=== PATIENT | female | born 1975 | race Hispanic/Latino ===

== ENCOUNTER → 2018-08-05 | Day surgery (SDC) | payer MEDICARE, OTHER ==
[~2018-08-05] MED LIST: ACETAMINOPHEN 1000 MG/100 ML IV ONE; ADVIL PO; ALLEGRA ALLERG180 MG PO; ATENOLOL50 MG PO; BACTRIM DS TAB1 EACH PO; BLISOVI PO; BUPIVACAINE HCL 0.5% INJ 30 ML VIAL INJ ONE; CEFAZOLIN SOD 1 GM/D5W 50ML 50 ML IV ONE; CYMBALTA20 MG PO; DEXAMETHASONE SOD PHOS INJ 4 MG/ML VIAL ONE; EPHEDRINE SULFATE INJ 50 MG/10 ML SYR ONE; FENTANYL CITRATE/PF 100MCG/2 ML INJ ONE; FOCALIN XR20 MG PO; GAS RELIEF125 M1 PO; JET ALERT PO; LIDOCAINE HCL 2% LOCAL INJ 5 ML SDV VIAL INJ ONE; LORAZEPAM0.5 MG PO; MIDAZOLAM HCL 2 MG/2 ML VIAL ONE; MUPIROCIN 2% OINT 22 GM TUBE ONE; NAPROXEN PO; NECON1 EAC1 PO; NEXIUM40 MG PO; OMEPRAZOLE40 MG PO; ONDANSETRON HCL INJ 2 MG/ML VIAL ONE; PAXIL20 MG PO; PROPOFOL IV EMULSION 10 MG/ML 20 ML VIAL ONE; RANITIDINE HCL300 MG PO; SEVOFLURANE INHAL SOLN 250 ML PEN BTL ONE; TIGAN300 MG PO; TUMS PO; TYLENOL PO; WELLBUTRIN XL300 MG PO; XENAZINE25 MG PO; ZOFRAN ODT4 MG PO
--- OUTSIDE RECORDS SUMMARY | 2018-08-05 05:26 | XMS REPORT | Summary of Care ---
Author Author [facility] Organization [facility] Address Unknown Phone Unavailable Encounter HQ Valentinontr_keshawn(FIN) [id number] Date(s): 12/28/17 - 12/29/17 [facility] [address] Vital Signs No data available for this section Problem List No data available for this section Allergies, Adverse Reactions, Alerts No Known Medication Allergies Medications losartan 25 mg oral tablet 25 mg=1 tab, PO, Daily, # 30 tab, 1 Refill(s), Pharmacy: [facility]/pharmacy # [id number] Start Date: 12/28/17 Status: Ordered Results No data available for this section Immunizations No data available for this section Procedures Procedure Date Related Diagnosis Body Site Status Neck procedure 02/23/14 Completed Neck procedure 11/22/07 Completed Balloon tuboplasty Completed Social History Social History Type Response Substance Abuse Use: None. Sexual Sexually active: Yes. Partner with STD? No. Sex Mutually Satisfying: No. Self Breast Exam No. Last Pap Smear 10/2016. Menstrual Period Started: Yes. Employment/School Status: Employed. Operates hazardous equipment: No. Alcohol Current, Type Wine. Smoking Status Never smoker; Exposure to Tobacco Smoke None; Cigarette Smoking Last 365 Days No; Reg Smoking Cessation Counseling No entered on: 12/15/17 Assessment and Plan No data available for this section
--- OUTSIDE RECORDS SUMMARY | 2018-08-05 05:26 | XMS REPORT | Summary of Care ---
Author Author [facility] Organization [facility] Address Unknown Phone Unavailable Encounter HQ Encntr_alias(FIN) [id number] Date(s): 12/22/17 - 12/23/17 [facility] [address] [facility] [address] [place], [place] [id number] [place] [address] Vital Signs No data available for this section Problem List No data available for this section Allergies, Adverse Reactions, Alerts No Known Medication Allergies Medications No data available for this section Results No data available for this section [...]
--- OUTSIDE RECORDS SUMMARY | 2018-08-05 05:26 | XMS REPORT | Summary of Care ---
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 [place], [place] [address] [phone] Discharge Disposition: Home or Self Care Attending Physician: Pankaj Winston MD Vital Signs Most recent to 1 oldest [Reference Range]: Height 162.56 cm (11/10/17 3:12 PM) Temperature Oral 98.4 DegF [96.4-99.1 DegF] (11/10/17 3:12 PM) Blood Pressure 121/83 mmHg [90-140/60-90 mmHg] (11/10/17 3:12 PM) Peripheral Pulse 84 bpm Rate [60-100 bpm] (11/10/17 3:12 PM) Weight 79.091 kg (11/10/17 3:12 PM) Body Mass Index 29.93 m2 (11/10/17 3:12 PM) Problem List No data available for this section Allergies, Adverse Reactions, Alerts No Known Medication Allergies Medications Gildess 24 FE 20 mcg-1 mg oral tablet 1 tab, PO, Daily, # 84 tab, 3 Refill(s), Pharmacy: [facility]/pharmacy #[id number] Start Date: 11/10/17 Status: Ordered Results No data available for [...] Reg Smoking Cessation Counseling No entered on: 01/07/18 Assessment and Plan No data available for this section
--- OUTSIDE RECORDS SUMMARY | 2018-08-05 05:26 | XMS REPORT | Continuity of Care Document ---
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) Active 01/22/2018 [facility] 723.4 - BRACHIAL NEURIT Active 01/13/2014 [facility] Medications Medication Details Route Status Patient Instructions Ordering Provider Order Date Source Atenolol 50 MG Oral Tablet 50 mg=1 tab, PO, Daily, # 90 tab, 0 Refill(s), Pharmacy: [facility]/pharmacy # [id number] Active 01/07/2018 [facility] clonazePAM 0.5 mg oral tablet 0.5 mg=1 tab, PO, BID, PRN anxiety, # 60 tab, 0 Refill(s) Active 01/07/2018 [facility] losartan 25 mg oral tablet 25 mg=1 tab, PO, Daily, # 30 tab, 1 Refill(s), Pharmacy: [facility]/pharmacy # [id number] Active 12/28/2017 [facility] lisinopril 10 mg oral tablet 10 mg=1 tab, PO, Daily, # 90 tab, 1 Refill(s), Pharmacy: [facility]/pharmacy # [id number], Patient reports she received 30mg tablets. Active 12/15/2017 [facility] lisinopril 10 mg oral tablet 10 mg=1 tab, PO, Daily, # 90 tab, 1 Refill(s), Pharmacy: [facility]/pharmacy # [id number] Active 12/15/2017 [facility] Motrin 800 mg oral tablet 800 mg=1 tab, PO, Q8H, PRN Pain, Take with food, X 10 day, # 30 tab, 0 Refill(s), Pharmacy: [facility]/pharmacy # [id number] Active 12/03/2017 [facility] 24 HR dexmethylphenidate hydrochloride 20 MG Extended Release Capsule [Focalin] 20 mg=1 cap, PO, QAM, 0 Refill(s) Active 11/30/2017 [facility] {24 (Ethinyl Estradiol 0.02 MG / norethindrone acetate 1 MG Oral Tablet) / 4 (Ferrous fumarate 75 MG Oral Tablet) } Pack [Gildess 24 Fe 28 Day] 1 tab, PO, Daily, # 84 tab, 3 Refill(s), Pharmacy: [facility]/pharmacy #[id number] Active 11/10/2017 [facility] Lorazepam 1 MG Oral Tablet 1 mg=1 tab, PO, Daily, PRN Anxiety, # 60 tab, 0 Refill(s) Active 09/16/2017 [facility] {21 (Ethinyl Estradiol 0.035 MG / Norethindrone 0.5 MG Oral Tablet) / 7 (Inert Ingredients 1 MG Oral Tablet) } Pack [Necon 0.5/35 28 Day] 1 tab, PO, Daily, # 28 tab, 0 Refill(s) No Longer Active 09/16/2017 [facility] ranitidine 300 mg oral tablet 300 mg=1 tab, PO, BID, 0 Refill(s) Active 09/16/2017 [facility] Esomeprazole 40 MG Enteric Coated Capsule [Nexium] 40 mg=1 cap, PO, BID, 0 Refill(s) Active 09/16/2017 [facility] non-formulary spark 1 drink a day, Refill(s) 0 Active 09/16/2017 [facility] duloxetine 30 MG Enteric Coated Capsule [Cymbalta] 30 mg=1 cap, PO, Daily, # 30 cap, 0 Refill(s) Active 09/16/2017 [facility] Advil PO, Q6H, 0 Refill(s) Active 09/16/2017 [facility] Atenolol 50 MG Oral Tablet 50 mg=1 tab, PO, Daily, # 30 tab, 0 Refill(s) No Longer Active 09/16/2017 [facility] Tylenol PO, 0 Refill(s) Active 09/16/2017 [facility] naproxen 500 mg oral tablet 500 mg=1 tab, PO, BID, # 60 tab, 0 Refill(s) Active 09/16/2017 [facility] Trimethobenzamide hydrochloride 300 MG Oral Capsule [Tigan] 300 mg=1 cap, PO, TID, # 21 cap, 0 Refill(s) Active 09/16/2017 [facility] 24 HR Bupropion Hydrochloride 300 MG Extended Release Tablet [Wellbutrin] 300 mg=1 tab, PO, Daily, # 30 tab, 0 Refill(s) Active 09/16/2017 [facility] Lupis PO, 0 Refill(s) Active 09/16/2017 [facility] Mupirocin 0.02 MG/MG Topical Ointment [Bactroban] 1 appl, TOP, TID, X 5 day, # 15 gm, 0 Refill(s), Pharmacy: [facility]/pharmacy #[id number] No Longer Active 09/16/2017 [facility] Allergies, Adverse Reactions, Alerts Substance Category Reaction Severity Reaction type Status Date Reported Comments Source No Known Medication Allergies Assertion Drug allergy [facility] Immunizations Immunization Date Given Site Status Last Updated Comments Source Results Order Name Results Value Reference Range Date Interpretation Comments Source Breast Mammo Scrn CLAUDETTE incl CAD MA Breast Mammo Scrn CLAUDETTE incl CAD MA BILATERAL FIRST EVER DIGITAL SCREENING MAMMOGRAM WITH CAD: 02/05/2018 CLINICAL: Screening/Screening Junior Keelyjocelyne Pelayo 1975. Current study was evaluated with a Computer Aided Detection (CAD) system. COMPARISON:No prior exams were available for comparison. TECHNIQUE: Mammographic views were obtained using digital acquisition. Current study was also evaluated with a Computer Aided Detection (CAD) system. FINDINGS: The tissue of both breasts is almost entirely fat. No significant masses, calcifications, or other findings are seen in either breast. IMPRESSION: NEGATIVE RECOMMENDATION:There is no mammographic evidence of malignancy. A 1 year screening mammogram is recommended.(02/06/2019) This exam was interpreted at [id number] at [facility]. Professional services are provided by the [facility]. Michelle Sibley M.D. to/penrad:02/05/2018 12:45:48 Dialysis Equipment Technician(s): Yvette Olivares [facility] letter sent: BI-RADS 1/2 Mammogram BI-RADS: 1 Negative 02/05/2018 - - Read by: Michelle Sibley MD Dictated Date/time: 02/05/18 12:45 Electronically Signed by: Michelle Sibley MD 02/05/18 12:45 FINAL REPORT [facility] Vital Signs Vital Sign Value Date Comments Source Weight 79.091 01/07/2018 [facility] Heart Rate 132 01/07/2018 [facility] Respitory Rate 16 01/07/2018 [facility] Temperature Oral (F) 99.4 F 01/07/2018 [facility] Systolic (mm Hg) 136 01/07/2018 [facility] Diastolic (mm Hg) 92 01/07/2018 [facility] Weight 80 12/15/2017 [facility] Temperature Oral (F) 98.7 F 12/15/2017 [facility] Heart Rate 109 12/15/2017 [facility] Respitory Rate 16 12/15/2017 [facility] Systolic (mm Hg) 143 12/15/2017 [facility] Diastolic (mm Hg) 98 12/15/2017 [facility] Heart Rate 117 12/03/2017 [facility] Temperature Oral (F) 99.1 F 12/03/2017 [facility] Height 170.18 cm 12/03/2017 [facility] Weight 79.205 12/03/2017 [facility] BMI Calculated 27.35 12/03/2017 [facility] Systolic (mm Hg) 131 12/03/2017 [facility] Diastolic (mm Hg) 87 12/03/2017 [facility] Height 170.18 cm 11/30/2017 [facility] Weight 78.636 11/30/2017 [facility] BMI Calculated 27.15 11/30/2017 [facility] Systolic (mm Hg) 110 11/30/2017 [facility] Diastolic (mm Hg) 77 11/30/2017 [facility] Heart Rate 125 11/30/2017 [facility] Temperature Oral (F) 98.5 F 11/30/2017 [facility] Respitory Rate 16 11/30/2017 [facility] Height 162.56 cm 11/10/2017 [facility] BMI Calculated 29.93 11/10/2017 [facility] Weight 79.091 11/10/2017 [facility] Heart Rate 84 11/10/2017 [facility] Temperature Oral (F) 98.4 F 11/10/2017 [facility] Systolic (mm Hg) 121 11/10/2017 [facility] Diastolic (mm Hg) 83 11/10/2017 [facility] BMI Calculated 28.53 09/16/2017 [facility] Weight 80.17 09/16/2017 [facility] Height 167.64 cm 09/16/2017 [facility] Heart Rate 88 09/16/2017 [facility] Temperature Oral (F) 98.4 F 09/16/2017 [facility] Systolic (mm Hg) 126 09/16/2017 [facility] Diastolic (mm Hg) 88 09/16/2017 [facility] Encounters Location Location Details Encounter Type Encounter Number Reason For Visit Attending Provider ADM Date DC Date Status Source Outpatient [id number] [place] 09/16/2017 [facility] Primary Care [facility] Outpatient [id number] Roula Rodríguez 09/16/2017 09/17/2017 [facility] Primary Care [facility] Phone Message [id number] 09/18/2017 09/20/2017 [facility] Outpatient [id number] MARAH GARCIA 11/10/2017 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 [facility] Outpatient [id number] Marah Garcia 11/10/2017 11/11/2017 [facility] Outpatient [id number] ROULA RODRÍGUEZ 11/30/2017 Active [facility] Primary Care [facility] Outpatient [id number] Roula Rodríguez 11/30/2017 12/01/2017 [facility] Primary Care [facility] Phone Message [id number] 12/01/2017 12/03/2017 [facility] Outpatient [id number] ANDREE MCKINLEY 12/03/2017 Active [facility] Primary Care [facility] Outpatient [id number] Roula Rodríguez 12/03/2017 12/04/2017 [facility] Outpatient [id number] ROULA RODRÍGUEZ 12/15/2017 Active [facility] Primary Care [facility] Outpatient [id number] Roula Rodríguez 12/15/2017 12/16/2017 [facility] Primary Care [facility] Phone Message [id number] 12/22/2017 12/24/2017 [facility] Primary Care [facility] Phone Message [id number] 12/28/2017 12/30/2017 [facility] Primary Care [facility] Phone Message [id number] 01/01/2018 01/03/2018 [facility] Outpatient [id number] ROULA RODRÍGUEZ 01/07/2018 Active [facility] Primary Care [facility] Outpatient [id number] Roula Rodríguez 01/07/2018 01/08/2018 [facility]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 [facility] Phone Message [id number] 01/15/2018 01/17/2018 [facility] [id number] Marah Garcia 02/05/2018 02/06/2018 [facility] [id number] ROULA RODRÍGUEZ 04/29/2018 Active [facility] Outpatient [id number] ROULA RODRÍGUEZ 06/04/2018 Active [facility] Outpatient [id number] ROULA RODRÍGUEZ 07/27/2018 Active [facility] Procedures Procedure Code Date Perfomer Comments Source Neck procedure [id number] 02/23/2014 [facility] Neck procedure [id number] 02/23/2014 [facility] Neck procedure [id number] 11/22/2007 [facility] Neck procedure [id number] 11/22/2007 [facility] Balloon tuboplasty [id number] Medical [facility] Balloon tuboplasty [id number] [facility]
--- OUTSIDE RECORDS SUMMARY | 2018-08-05 05:26 | XMS REPORT | Summary of Care ---
Author Author [facility] Organization [facility] Address Unknown Phone Unavailable Encounter HQ Encntr_alifelisha(FIN) [id number] Date(s): 01/01/18 - 01/02/18 [facility] [address] [place], [place] [id number] [place] [address] Vital Signs No data available for this [...]
--- OUTSIDE RECORDS SUMMARY | 2018-08-05 05:26 | XMS REPORT | Summary of Care ---
Author Author [facility] Primary [facility] Organization [facility] Address Unknown Phone Unavailable Encounter HQ Ara(FIN) [id number] Date(s): 11/30/17 - 11/30/17 [facility] [address] Discharge Disposition: Home or Self Care Attending Physician: Tyron Rodríguez MD Vital Signs Most recent to 1 oldest [Reference Range]: Height 170.18 cm (11/30/17 1:06 PM) Temperature Oral 98.5 DegF [96.4-99.1 DegF] (11/30/17 1:06 PM) Blood Pressure 110/77 mmHg [90-140/60-90 mmHg] (11/30/17 1:06 PM) Respiratory Rate 16 BRMIN [14-20 BRMIN] (11/30/17 1:06 PM) Peripheral Pulse 125 bpm Rate [60-100 bpm] *HI* (11/30/17 1:06 PM) Weight 78.636 kg (11/30/17 1:06 PM) Body Mass Index 27.15 m2 (11/30/17 1:06 PM) Problem List No data available for this section Allergies, Adverse Reactions, Alerts No Known Medication Allergies Medications Focalin XR 20 mg oral capsule, extended release 20 mg=1 cap, PO, QAM, 0 Refill(s) Start Date: 11/30/17 Status: Ordered Results No data available for [...] Reg Smoking Cessation Counseling No entered on: 11/30/17 Assessment and Plan No data available for this section
--- OUTSIDE RECORDS SUMMARY | 2018-08-05 05:26 | XMS REPORT | Summary of Care ---
Author Author [facility] Primary [facility] Organization [facility] Address Unknown Phone Unavailable Encounter HQ Ara(FIN) [id number] Date(s): 12/03/17 - 12/03/17 [facility] [address] [place] [phone] Discharge Disposition: Home or Self Care Attending Physician: Tyron Rodríguez MD Vital Signs Most recent to 1 oldest [Reference Range]: Height 170.18 cm (12/03/17 9:20 AM) Temperature Oral 99.1 DegF [96.4-99.1 DegF] (12/03/17 9:20 AM) Blood Pressure 131/87 mmHg [90-140/60-90 mmHg] (12/03/17 9:20 AM) Peripheral Pulse 117 bpm Rate [60-100 bpm] *HI* (12/03/17 9:20 AM) Weight 79.205 kg (12/03/17 9:20 AM) Body Mass Index 27.35 m2 (12/03/17 9:20 AM) Problem List No data available for this section Allergies, Adverse Reactions, Alerts No Known Medication Allergies Medications Motrin 800 mg oral tablet 800 mg=1 tab, PO, Q8H, PRN Pain, Take with food, X 10 day, # 30 tab, 0 Refill(s) , [facility]acy: [facility]acy # [id number] Start Date: 12/03/17 Stop Date: 12/13/17 Status: Ordered Results No data available for [...]
--- OUTSIDE RECORDS SUMMARY | 2018-08-05 05:26 | XMS REPORT | Summary of Care ---
Author Author [facility] Organization [facility] Address Unknown Phone Unavailable Encounter PUNEET Bullock(FIN) [id number] Date(s): 12/15/17 - 12/15/17 [facility] [address] Discharge Disposition: Home or Self Care Attending Physician: Tyron Rodríguez MD Vital Signs Most recent to 1 oldest [Reference Range]: Temperature Oral 98.7 DegF [96.4-99.1 DegF] (12/15/17 2:16 PM) Blood Pressure 143/98 mmHg [90-140/60-90 mmHg] *HI* (12/15/17 2:16 PM) Respiratory Rate 16 BRMIN [14-20 BRMIN] (12/15/17 2:16 PM) Peripheral Pulse 109 bpm Rate [60-100 bpm] *HI* (12/15/17 2:16 PM) Weight 80 kg (12/15/17 2:16 PM) Problem List No data available for this section Allergies, Adverse Reactions, Alerts No Known Medication Allergies Medications lisinopril 10 mg oral tablet 10 mg=1 tab, PO, Daily, # 90 tab, 1 Refill(s), Pharmacy: [facility]/pharmacy # [id number] Start Date: 12/15/17 Status: Ordered lisinopril 10 mg oral tablet 10 mg=1 tab, PO, Daily, # 90 tab, 1 Refill(s), Pharmacy: [facility]/pharmacy # [id number], P atient reports she received 30mg tablets. Start Date: 12/15/17 Status: Ordered Results No data available for [...]
--- OUTSIDE RECORDS SUMMARY | 2018-08-05 05:26 | XMS REPORT | Summary of Care ---
Author Author [facility] business account leader [facility] Organization [facility] business account leader [facility] Address Unknown Phone Unavailable Encounter HQ Valentinontr_alifelisha(FIN) [id number] Date(s): 01/15/18 - 01/16/18 [facility] business account leader [facility] [address] [phone] Vital Signs No data available for this [...]
--- OUTSIDE RECORDS SUMMARY | 2018-08-05 05:26 | XMS REPORT | Summary of Care ---
Author Author [facility] Primary [facility] Organization [facility] Address Unknown Phone Unavailable Encounter HQ Ara(FIN) [id number] Date(s): 09/16/17 - 09/16/17 [facility] [address] Discharge Disposition: Home or Self Care Attending Physician: Tyron Rodríguez MD Vital Signs Most recent to 1 oldest [Reference Range]: Height 167.64 cm (09/16/17 1:48 PM) Temperature Oral 98.4 DegF [96.4-99.1 DegF] (09/16/17 1:48 PM) Blood Pressure 126/88 mmHg [90-140/60-90 mmHg] (09/16/17 1:48 PM) Peripheral Pulse 88 bpm Rate [60-100 bpm] (09/16/17 1:48 PM) Weight 80.17 kg (09/16/17 1:48 PM) Body Mass Index 28.53 m2 (09/16/17 1:48 PM) Problem List No data available for this section Allergies, Adverse Reactions, Alerts No Known Medication Allergies Medications Advil PO, Q6H, 0 Refill(s) Start Date: 09/16/17 Status: Ordered Lupis PO, 0 Refill(s) Start Date: 09/16/17 Status: Ordered atenolol 50 mg oral tablet 50 mg=1 tab, PO, Daily, # 30 tab, 0 Refill(s) Start Date: 09/16/17 Stop Date: 11/30/17 Status: Discontinued Bactroban 2% topical ointment 1 appl, TOP, TID, X 5 day, # 15 gm, 0 Refill(s), Pharmacy: [facility]/pharmacy #[id number] Start Date: 09/16/17 Stop Date: 09/21/17 Status: Completed Cymbalta 30 mg oral delayed release capsule 30 mg=1 cap, PO, Daily, # 30 cap, 0 Refill(s) Start Date: 09/16/17 Status: Ordered LORazepam 1 mg oral tablet 1 mg=1 tab, PO, Daily, PRN Anxiety, # 60 tab, 0 Refill(s) Start Date: 09/16/17 Stop Date: 10/16/17 Status: Ordered naproxen 500 mg oral tablet 500 mg=1 tab, PO, BID, # 60 tab, 0 Refill(s) Start Date: 09/16/17 Status: Ordered Necon 0.5/35 oral tablet 1 tab, PO, Daily, # 28 tab, 0 Refill(s) Start Date: 09/16/17 Stop Date: 11/10/17 Status: Discontinued NexIUM 40 mg oral delayed release capsule 40 mg=1 cap, PO, BID, 0 Refill(s) Start Date: 09/16/17 Status: Ordered non-formulary spark 1 drink a day, Refill(s) 0 Start Date: 09/16/17 Status: Ordered non-formulary gas releif 125 mg, Refill(s) 0 Start Date: 09/16/17 Status: Ordered non-formulary Jet Alert Caffeine, Refill(s) 0 Start Date: 09/16/17 Status: Ordered ranitidine 300 mg oral tablet 300 mg=1 tab, PO, BID, 0 Refill(s) Start Date: 09/16/17 Status: Ordered Tigan 300 mg oral capsule 300 mg=1 cap, PO, TID, # 21 cap, 0 Refill(s) Start Date: 09/16/17 Stop Date: 09/23/17 Status: Ordered Tylenol PO, 0 Refill(s) Start Date: 09/16/17 Status: Ordered Wellbutrin XL 300 mg/24 hours oral tablet, extended release 300 mg=1 tab, PO, Daily, # 30 tab, 0 Refill(s) Start Date: 09/16/17 Status: Ordered Results No data available for [...]
--- OUTSIDE RECORDS SUMMARY | 2018-08-05 05:26 | XMS REPORT | Summary of Care ---
Author Author [facility] Organization [facility] Address Unknown Phone Unavailable Encounter HQ Valentinontr_alifelisha(FIN) [id number] Date(s): 12/01/17 - 12/02/17 [facility] [address] [facility] [address] [place], [place] [phone] [place] [address] Vital Signs No data available for this [...]
--- OUTSIDE RECORDS SUMMARY | 2018-08-05 05:26 | XMS REPORT | Summary of Care ---
Author Author [facility] Organization [facility] Address Unknown Phone Unavailable Encounter HQ Tomer_keshawn(FIN) [id number] Date(s): 01/07/18 - 01/07/18 [facility] [address] Discharge Disposition: Home or Self Care Attending Physician: Tyron Rodríguez MD Vital Signs Most recent to 1 oldest [Reference Range]: Temperature Oral 99.4 DegF [96.4-99.1 DegF] *HI* (01/07/18 10:08 AM) Blood Pressure 136/92 mmHg [90-140/60-90 mmHg] (01/07/18 10:08 AM) Respiratory Rate 16 BRMIN [14-20 BRMIN] (01/07/18 10:08 AM) Peripheral Pulse 132 bpm Rate [60-100 bpm] *HI* (01/07/18 10:08 AM) Weight 79.091 kg (01/07/18 10:08 AM) Problem List No data available for this section Allergies, Adverse Reactions, Alerts No Known Medication Allergies Medications atenolol 50 mg oral tablet 50 mg=1 tab, PO, Daily, # 90 tab, 0 Refill(s), Pharmacy: [facility]/pharmacy # [id number] Start Date: 01/07/18 Status: Ordered clonazePAM 0.5 mg oral tablet 0.5 mg=1 tab, PO, BID, PRN anxiety, # 60 tab, 0 Refill(s) Start Date: 01/07/18 Status: Ordered Results No data available for [...]
--- OUTSIDE RECORDS SUMMARY | 2018-08-05 05:26 | XMS REPORT | Summary of Care ---
Author Author [facility] Outpatient Imaging [facility] Outpatient Imaging [facility] Address Unknown Phone Unavailable Encounter HQ Tomer_keshawn(JOSH) [id number] Date(s): 02/05/18 - 02/05/18 [facility] Outpatient Imaging [facility] [address], [place] [address]- [place] Discharge Disposition: Home or Self Care Attending Physician: Pankaj Winston MD Vital Signs No data available for this [...]
--- OUTSIDE RECORDS SUMMARY | 2018-08-05 05:26 | XMS REPORT | Summary of Care ---
Author Author [facility] Organization [facility] Address Unknown Phone Unavailable Encounter HQ Encntr_alifelisha(FIN) [id number] Date(s): 09/18/17 - 09/19/17 [facility] [address] [place], [place] [id number] [place] [address] Vital Signs No data available for this [...]
[2018-08-05 10:30] VITALS: BP 109/77
--- NOTE | 2018-08-05 14:16 | Operative Report ---
DATE OF PROCEDURE: August 05, 2018 PREOPERATIVE DIAGNOSIS: Anterior interosseous syndrome, left forearm. POSTOPERATIVE DIAGNOSIS: Anterior interosseous syndrome, left forearm. PROCEDURE PERFORMED: Decompression of left median nerve, proximal and mid portion of the forearm. ANESTHESIA: General. HISTORY: The patient is a 42-year-old female who complains of pain in the left forearm and has clinical findings consistent with anterior interosseous syndrome. She has undergone electrodiagnostic testing which verified the compression of the median nerve in the proximal forearm. The risks, benefits and alternatives of treatment were discussed with the patient and the family. They are prepared to undergo the procedures outlined. DETAILS OF PROCEDURE: The patient was marked preoperatively in the holding area. She was brought to the operating theater. After the induction of adequate general anesthesia, she was prepped and draped in a supine position. A curvilinear incision was marked out beginning at the antecubital fossa and extending over the volar portion of the forearm. The left upper extremity was exsanguinated, and the tourniquet was inflated to a pressure of 250 mmHg. The incision was made through the skin and subcutaneous tissues. Branches of the medial antebrachial cutaneous nerve were identified, protected and preserved throughout the dissection. The dissection continued through the subcutaneous space. Several tributaries of the basilic vein were identified, and these were ligated between surgical clips in order to allow clear access to the surgical field. Once the skin and subcutaneous tissue were elevated, the visualization of the lacertus fibrosus was performed. Just proximal to the lacertus fibrosus, the brachial artery and median nerve were identified. Using the median nerve as a guide to direct the dissection, it was kept in view, protected and preserved. The lacertus was then divided sharply, and the median nerve was then traced distally. Small muscular branches crossing over the median nerve proximally from the pronator teres muscle were elevated, and there were several areas of conjoined tendon which required division over the nerve. The humeral head, i.e., superficial head of the pronator teres, was reflected up, and the dissection then continued distally ligating the small vascular branches that were coursing over the volar aspect of the median nerve. With the humeral head elevated, the median nerve was traced distally down to where the anterior interosseous takeoff occurred. The proximal edge of the flexor digitorum muscle was identified where the nerve coursed beneath it. This edge was not fibrous. However, there was a small muscular release done in order to completely release the nerve throughout its entire course so the nerve was then totally decompressed from the level of the antecubital fossa all the way down to its take off of the anterior interosseous branch and underneath the flexor digitorum superficialis muscle. The wound was then copiously irrigated with bacteriostatic saline. The arm was placed through a range of pronation and supination. No compressing structures were identified. At this point, the tourniquet was deflated. All bleeding points were coapted using the bipolar cautery. The skin was approximated with 4-0 Vicryl in an interrupted buried fashion. The skin was then closed with 5-0 nylon in an interrupted horizontal mattress fashion. A Marcaine field block was performed at the operative site. A sterile, bulking, conforming bandage was applied from the axilla to the wrist, and a fiberglass splint was fashioned posteriorly to maintain the elbow in 90 degrees with the forearm in neutral position. This was held in place with loosely wrapped Avinash wraps. The patient tolerated the procedure well and was brought to the recovery room in satisfactory condition and discharged with a postoperative instruction sheet as well as a followup appointment. Job#: [id number] ISAI
== END | disposition home or self-care (01) ==
LOC: OR 05:23
PROVIDERS: ATTEND Plastic Surgery
DX: G56.12 Other lesions of median nerve, left upper limb (principal); I10 Essential (primary) hypertension; F95.2 Tourette's disorder; N32.89 Other specified disorders of bladder; K22.70 Barrett's esophagus without dysplasia; K44.9 Diaphragmatic hernia without obstruction or gangrene; F98.8 Other specified behavioral and emotional disorders with onset usually occurring in childhood and adolescence; F42.9 Obsessive-compulsive disorder, unspecified; R06.02 Shortness of breath; F32.9 Major depressive disorder, single episode, unspecified; F41.9 Anxiety disorder, unspecified; Z88.9 Allergy status to unspecified drugs, medicaments and biological substances; Z01.810 Encounter for preprocedural cardiovascular examination
CPT/HCPCS: 81025; 93005; J0690; J1100; J2001; J2250; J2405

== ENCOUNTER 2018-10-06 13:58 | Outpatient (RCR) | payer MEDICARE, OTHER ==
[~2018-10-06 13:58] MED LIST changes: -ACETAMINOPHEN 1000 MG/100 ML IV ONE; -BUPIVACAINE HCL 0.5% INJ 30 ML VIAL INJ ONE; -CEFAZOLIN SOD 1 GM/D5W 50ML 50 ML IV ONE; -DEXAMETHASONE SOD PHOS INJ 4 MG/ML VIAL ONE; -EPHEDRINE SULFATE INJ 50 MG/10 ML SYR ONE; -FENTANYL CITRATE/PF 100MCG/2 ML INJ ONE; -LIDOCAINE HCL 2% LOCAL INJ 5 ML SDV VIAL INJ ONE; -MIDAZOLAM HCL 2 MG/2 ML VIAL ONE; -MUPIROCIN 2% OINT 22 GM TUBE ONE; -ONDANSETRON HCL INJ 2 MG/ML VIAL ONE; -PROPOFOL IV EMULSION 10 MG/ML 20 ML VIAL ONE; -SEVOFLURANE INHAL SOLN 250 ML PEN BTL ONE
== END 2018-10-07 ==
LOC: OT 13:58
PROVIDERS: ATTEND Plastic Surgery
DX: G56.12 Other lesions of median nerve, left upper limb (principal); R53.1 Weakness; R27.9 Unspecified lack of coordination
CPT/HCPCS: 97010; 97022 ×3; 97035 ×4; 97110 ×5; 97112; 97140 ×2; 97165; G0283

== ENCOUNTER 2018-11-04 13:54 | Outpatient (RCR) | payer MEDICARE, OTHER | END 2018-11-07 | LOC: OT 13:54 | PROVIDERS: ATTEND Plastic Surgery | DX: G56.12 Other lesions of median nerve, left upper limb (principal); R53.1 Weakness; R27.9 Unspecified lack of coordination | CPT/HCPCS: 97010; 97022 ×6; 97032; 97035 ×4; 97110 ×6; 97139; 97140; G0283 ×3 ==

== ENCOUNTER 2018-11-18 13:42 | Outpatient (RCR) | payer MEDICARE, OTHER | END 2018-12-07 | LOC: OT 13:42 | PROVIDERS: ATTEND Plastic Surgery | DX: G56.12 Other lesions of median nerve, left upper limb (principal); R53.1 Weakness; R27.9 Unspecified lack of coordination | CPT/HCPCS: 97139 ==